=== PATIENT | male | born 1945 | race Caucasian/White ===

== ENCOUNTER 2017-02-23 03:48 | Emergency (ER) | payer MEDICARE ==
[2017-02-23 04:08] VITALS: BP 137/90
[2017-02-23] MEDS ORDERED: Sodium Chloride 0.9% 10 ML Syringe FLUSH PRN (04:37)
--- NOTE | 2017-02-23 04:45 | EDM.PDOC ---
ED HPI GENERAL MEDICAL PROBLEM - General Chief Complaint: Fever Stated Complaint: SHAKES Time Seen by Provider: 02/23/17 04:20 Source of Information: Reports: Patient, RN Notes Reviewed History Limitations: Reports: No Limitations - History of Present Illness INITIAL COMMENTS - FREE TEXT/NARRATIVE: Here with his Chief complaint Chills History of present illness 71-year-old male with history of gout and hypertension woke up about 3 AM with shaking chills. He was unaware of fever He felt a bit short of breath, no headache no nausea no vomiting no diarrhea no cough no cold symptoms On arrival here it started developing sweating instead of chills Staying in a cabin, visiting here from [facility] He has developed some lower abdominal pain that is worse with movement, he thinks it's a muscle anemia strained himself. No new joint pains, he does have some aching in his hips. He has seen several ticks around his place and has pulled several off of his body. Remote history, no recent illness Lower Abdomen Pain Score (Numeric/FACES): 2 - Related Data Allergies Allergy/AdvReac Type Severity Reaction Status Date / Time No Known Allergies Allergy Verified 02/23/17 04:08 Home Meds: Home Meds Allopurinol [Allopurinol] 2 tab PO DAILY 02/23/17 [History] Aspirin [Children's Aspirin] 81 mg PO DAILY 02/23/17 [History] Cetirizine HCl [Aller-Cm] 10 mg PO DAILY 02/23/17 [History] Doxazosin [Doxazosin Mesylate] 1 mg PO DAILY 02/23/17 [History] Doxycycline Monohydrate 100 mg PO BID #20 capsule 02/23/17 [Rx] Hydrochlorothiazide 25 mg PO DAILY 02/23/17 [History] Lisinopril 40 mg PO DAILY 02/23/17 [History] [place]-3/DHA/Epa/Fish Oil [Fish Oil 500 MG Softgel] 1 tab PO DAILY 02/23/17 [ History] Omeprazole 20 mg PO DAILY 02/23/17 [History] Sotalol [Betapace] 1 tab PO BID 02/23/17 [History] Social & Family History - Tobacco Use Smoking Status *Q: Never Smoker ED ROS GENERAL - Review of Systems Review Of Systems: See Below Constitutional: Reports: Chills, Fatigue, Diaphoresis (Now started) HEENT: Reports: Ear Pain, Rhinitis, Throat Pain Respiratory: Reports: Shortness of Breath. Denies: Pleuritic Chest Pain, Cough Cardiovascular: Reports: Other (History of heart murmur from aortic valve calcification). Denies: Chest Pain, Lightheadedness, Palpitations Endocrine: Reports: No Symptoms GI/Abdominal: Denies: Abdominal Pain, Diarrhea, Nausea, Vomiting : Reports: Other (Nocturia 2 times per night, no changes). Denies: Dysuria, Flank Pain, Frequency Musculoskeletal: Reports: Joint Pain (Hips, not new) Skin: Reports: No Symptoms Neurological: Reports: No Symptoms Psychiatric: Reports: No Symptoms Hematologic/Lymphatic: Reports: No Symptoms Immunologic: Reports: No Symptoms ED EXAM, GENERAL - Physical Exam Exam: See Below Exam Limited By: No Limitations General Appearance: Alert, Mild Distress, Other (Febrile 102.1 other vital signs normal) Ears: Normal External Exam, Normal Canal, Normal TMs, Hearing Loss (Previous) Nose: Normal Inspection, Normal Mucosa Throat/Mouth: Normal Inspection, Normal Lips, Normal Oropharynx, Normal Voice Head: Atraumatic, Normocephalic Neck: Normal Inspection, Supple, Non-Tender. No: Lymphadenopathy (R), Lymphadenopathy (L) Respiratory/Chest: No Respiratory Distress, No Accessory Muscle Use, Chest Non- Tender, Rales (Scattered at the bases of the lungs more on the right) Cardiovascular: Normal Peripheral Pulses, Regular Rate, Rhythm GI/Abdominal: Normal Bowel Sounds, Soft, Tender (Mild across lower abdomen, worse with sitting up). No: Guarding, Rebound Back Exam: Normal Inspection Extremities: Normal Inspection, No Pedal Edema Neurological: Alert, Oriented, No Motor/Sensory Deficits Psychiatric: Normal Affect, Normal Mood Skin Exam: Warm, Dry, Intact, Normal Color, Rash (Small amount of inflammation/ erythema between the buttocks), Other Lymphatic: No Adenopathy Course - Vital Signs Last Recorded V/S: Last Vital Signs Temp 38.9 C H 02/23/17 04:06 Pulse 78 02/23/17 04:06 Resp 16 02/23/17 04:06 BP 137/90 02/23/17 04:06 Pulse Ox 94 L 02/23/17 04:06 - Orders/Labs/Meds Orders: Active Orders 24 hr Category Date Time Status Chest 2V [CR] Stat Exams 02/23/17 04:37 Taken Sodium Chloride 0.9% [Saline Flush] Med 02/23/17 04:37 Active 10 ml FLUSH ASDIRECTED PRN Saline Lock Insert [OM.PC] Routine Oth 02/23/17 04:37 Ordered Medication Orders Sodium Chloride (Saline Flush) 10 ml FLUSH ASDIRECTED PRN PRN Reason: Keep Vein Open Labs: Laboratory Tests 02/23/17 02/23/17 02/23/17 Range/Units 04:45 04:45 04:45 WBC 6.9 (4.5-11.0) K/uL RBC 4.83 (4.30-5.90) M/uL Hgb 15.4 H (12.0-15.0) g/dL Hct 45.8 (40.0-54.0) % MCV 95 (80-98) fL MCH 32 H (27-31) pg MCHC 34 (32-36) % Plt Count 182 (150-400) K/uL D-Dimer, Quantitative 1940 H (0.0-400.0) ng/mL Sodium 140 (140-148) mmol/L Potassium 4.2 (3.6-5.2) mmol/L Chloride 105 (100-108) mmol/L Carbon Dioxide 28 (21-32) mmol/L Anion Gap 6.7 (5.0-14.0) mmol/L BUN 22 H (7-18) mg/dL Creatinine 1.3 (0.8-1.3) mg/dL Est Cr Clr Drug Dosing 54.71 mL/min Estimated GFR (MDRD) 54 L (>60) Glucose 142 H (74-106) mg/dL Calcium 8.6 (8.5-10.1) mg/dL Total Bilirubin 2.0 H (0.2-1.0) mg/dL AST 18 (15-37) U/L ALT 17 (12-78) U/L Alkaline Phosphatase 109 (46-116) U/L Total Protein 7.0 (6.4-8.2) g/dL Albumin 3.2 L (3.4-5.0) g/dL Globulin 3.8 H (2.3-3.5) g/dL Albumin/Globulin Ratio 0.8 L (1.2-2.2) Urine Color Urine Appearance Urine pH (4.5-8.0) Ur Specific [place] (1.008-1.030) Urine Protein (NEGATIVE) mg/dL Urine Glucose (UA) (NEGATIVE) mg/dL Urine Ketones (NEGATIVE) mg/dL Urine Occult Blood (NEGATIVE) Urine Nitrite (NEGAITVE) Urine Bilirubin (NEGATIVE) Urine Urobilinogen (NORMAL) mg/dL Ur Leukocyte Esterase (NEGATIVE) Urine RBC (0-5) Urine WBC (0-5) Ur Epithelial Cells Amorphous Sediment Urine Bacteria Urine Mucus 02/23/17 Range/Units 05:48 WBC (4.5-11.0) K/uL RBC (4.30-5.90) M/uL Hgb (12.0-15.0) g/dL Hct (40.0-54.0) % MCV (80-98) fL MCH (27-31) pg MCHC (32-36) % Plt Count (150-400) K/uL D-Dimer, Quantitative (0.0-400.0) ng/mL Sodium (140-148) mmol/L Potassium (3.6-5.2) mmol/L Chloride (100-108) mmol/L Carbon Dioxide (21-32) mmol/L Anion Gap (5.0-14.0) mmol/L BUN (7-18) mg/dL Creatinine (0.8-1.3) mg/dL Est Cr Clr Drug Dosing mL/min Estimated GFR (MDRD) (>60) Glucose (74-106) mg/dL Calcium (8.5-10.1) mg/dL Total Bilirubin (0.2-1.0) mg/dL AST (15-37) U/L ALT (12-78) U/L Alkaline Phosphatase (46-116) U/L Total Protein (6.4-8.2) g/dL Albumin (3.4-5.0) g/dL Globulin (2.3-3.5) g/dL Albumin/Globulin Ratio (1.2-2.2) Urine Color Yellow Urine Appearance Slightly cloudy Urine pH 6.0 (4.5-8.0) Ur Specific [place] 1.010 (1.008-1.030) Urine Protein Negative (NEGATIVE) mg/dL Urine Glucose (UA) Normal (NEGATIVE) mg/dL Urine Ketones Negative (NEGATIVE) mg/dL Urine Occult Blood Negative (NEGATIVE) Urine Nitrite Negative (NEGAITVE) Urine Bilirubin Negative (NEGATIVE) Urine Urobilinogen 1 (NORMAL) mg/dL Ur Leukocyte Esterase Small (NEGATIVE) Urine RBC 0-5 (0-5) Urine WBC 0-5 (0-5) Ur Epithelial Cells Few Amorphous Sediment Not seen Urine Bacteria Few Urine Mucus Few Meds: Medications Generic Name Dose Route Start Last Admin Trade Name Freq PRN Reason Stop Dose Admin Sodium Chloride 10 ml 02/23/17 04:37 Saline Flush FLUSH ASDIRECTED PRN Keep Vein Open - Re-Assessments/Exams Free Text/Narrative Re-Assessment/Exam: 02/23/17 04:47 71-year-old male with new onset chills, fever, and shortness of breath, although not showing any troubles breathing on exam. Differential diagnosis includes pneumonia tickborne illness, UTI, among others 02/23/17 06:11 WBC 6.9 hemoglobin 15.4 platelets normal Liver enzymes normal except bilirubin 2.0 The electrolytes and creatinine normal GFR 54 Urinalysis negative Chest x-ray by my interpretation negative for acute pneumonia although there are a few atelectatic streaks could represent early pneumonia Cause of the fever is unclear, most likely diagnoses include viral, tickborne illness, and early in the course of pneumonia. Doxycycline prescribed Departure - Departure Time of Disposition: 06:08 Disposition: Home, Self-Care 01 Condition: Good Clinical Impression: Acute febrile illness - Discharge Information Prescriptions: Doxycycline Monohydrate 100 mg PO BID #20 capsule Instructions: Fever, Adult, [id number] Referrals: PCP,None [Primary Care Provider] - Forms: ED Department Discharge Additional Instructions: Because of your fever tonight is not entirely clear. The most likely explanations would be early in the course of pneumonia, a tick- borne illness, or a viral infection. Please get rechecked if you're not seeing improvement within 3 days in your fever or if he developed new rash that chest pains repeated vomiting or other new symptoms. You may take acetaminophen or ibuprofen for fever and aches as needed Drink plenty of fluids to prevent dehydration - My Orders Last 24 Hours: My Active Orders 02/23/17 04:37 Chest 2V [CR] Stat Sodium Chloride 0.9% [Saline Flush] 10 ml FLUSH ASDIRECTED PRN Saline Lock Insert [OM.PC] Routine - Assessment/Plan Last 24 Hours: My Active Orders 02/23/17 04:37 Chest 2V [CR] Stat Sodium Chloride 0.9% [Saline Flush] 10 ml FLUSH ASDIRECTED PRN Saline Lock Insert [OM.PC] Routine
[2017-02-23] MEDS ORDERED: Adenosine 6 MG/2 ML SDV IVPUSH ONE (04:52)
--- NOTE | 2017-02-23 09:09 | CR ---
Chest 2V HISTORY: dyspnea, fever COMPARISON: None FINDINGS: Lungs appear clear and normally aerated. Heart is borderline enlarged. No vascular redistribution or pleural fluid can be seen. Bony structures and soft tissues are unremarkable. IMPRESSION: Borderline cardiomegaly without evidence for decompensation. No acute chest abnormality is identifie d.
== END 2017-02-23 06:29 | disposition home or self-care (01) ==
LOC: JP.ED 03:48
DX: R50.9 Fever, unspecified (principal); Z79.82 Long term (current) use of aspirin; Z79.899 Other long term (current) drug therapy
CPT/HCPCS: 36415; 71020; 71020-26; 80053; 81001; 85027; 85379; 99284

== ENCOUNTER 2024-02-02 06:09 | Day surgery (SDC) | payer MEDICARE ==
[2024-02-02 06:34] LABS: HEMATOCRIT 43.3 % (38.4-49.7); HEMOGLOBIN 14.9 g/dL (12.9-16.9); MEAN CORPUSCULAR HEMOGLOBIN 32.9 pg (31.6-35.5); MEAN CORPUSCULAR HGB CONC 34.4 g/dL (31.6-35.5); MEAN CORPUSCULAR VOLUME 95.6 fL (81.4-99.0); RED BLOOD CELL COUNT 4.53 M/uL (4.14-5.76); WHITE BLOOD CELL COUNT,WBC 7.1 K/uL (3.2-11.0)
[2024-02-02 06:58] LABS: ALANINE AMINOTRANSFERASE,ALT 18 U/L (12-78); ALBUMIN 3.6 g/dL (3.4-5.0); ALKALINE PHOSPHATASE 106 U/L (46-116); ANION GAP 8.6 mmol/L (5.0-14.0); ASPARTATE AMNIOTRANSFERASE,AST 18 U/L (15-37); BILIRUBIN TOTAL 1.3 mg/dL (0.2-1.0); BLOOD UREA NITROGEN,BUN 24 mg/dL (7-18); CALCIUM 9.2 mg/dL (8.5-10.1); CARBON DIOXIDE,CO2 30 mmol/L (21-32); CHLORIDE,CL 102 mmol/L (100-108); CREATININE 1.2 mg/dL (0.8-1.3); EST CRCL DRUG DOSING (CG) 49.92 mL/min; ESTIMATED GFR 62 mL/min (>60); GLUCOSE RANDOM 133 mg/dL (74-106); PROTEIN TOTAL,TP 7.2 g/dL (6.4-8.2); SODIUM,NA 141 mmol/L (140-148)
[2024-02-02] MEDS: Sodium Chloride 0.9% 1,000 ML IV SCH (07:21)
[2024-02-02] MEDS ORDERED: Dexamethasone 4 MG/ML SDV ONE (07:27)
[2024-02-02] MEDS ORDERED: fentaNYL 250 MCG/5 ML SDV ONE (07:27)
[2024-02-02] MEDS ORDERED: Propofol 200 MG/20 ML SDV ONE (07:27)
[2024-02-02] MEDS ORDERED: Glycopyrrolate 0.2 MG/ML 5 ML MDV ONE (07:27)
[2024-02-02] MEDS ORDERED: Rocuronium 50 MG/5 ML Vial ONE (07:27)
[2024-02-02] MEDS ORDERED: Succinylcholine 200 MG/10 ML MDV ONE (07:27)
[2024-02-02] MEDS ORDERED: Ondansetron 4 MG/2 ML SDV ONE (07:27)
[2024-02-02] MEDS ORDERED: Neostigmine Methylsulfate 10 MG/10 ML MDV ONE (07:27)
[2024-02-02] MEDS: metroNIDAZOLE/Normal Saline 500 MG in Premix Bag 1 BAG IV ONE (07:28)
[2024-02-02] MEDS: ceFAZolin 2 GM in Premix Bag 1 BAG IV ONE (08:30)
[2024-02-02] MEDS: Bupivacaine 0.5%/EPINEPHrine 1:200,000 50 ML MDV ONE (08:30)
[2024-02-02] MEDS ORDERED: Ketorolac 30 MG/ML SDV ONE (08:38)
[2024-02-02] MEDS ORDERED: Lactated Ringers 1,000 ML ONE (09:37)
[2024-02-02] MEDS: Ropivacaine 46 ML, dexAMETHasone 8 MG, EPINEPHrine 0.4 MG, Sodium Chloride 0.9% 31.6 ML NERVRT SCH (10:28)
[2024-02-02] MEDS: Acetaminophen/HYDROcodone 325-5 MG Tab PO PRN (11:46)
[2024-02-02 14:01] VITALS: BP 127/90; PULSE 88
== END 2024-02-02 15:11 | disposition home or self-care (01) ==
LOC: JP.SDS 06:09
PROVIDERS: ATTEND Surgery
DX: K40.30 Unilateral inguinal hernia, with obstruction, without gangrene, not specified as recurrent (principal); I10 Essential (primary) hypertension; I48.0 Paroxysmal atrial fibrillation; K21.9 Gastro-esophageal reflux disease without esophagitis; E66.9 Obesity, unspecified; Z79.01 Long term (current) use of anticoagulants; Z79.899 Other long term (current) drug therapy
CPT/HCPCS: 36415; 80053; 85027; A9270-GY; C1781; J0171; J0330; J0690; J1100; J1596; J1836; J1885; J2405; J2704; J2710; J2795; J3010; J3490; J7030; J7120